=== PATIENT | male | born 1995 | race Caucasian/White ===

== ENCOUNTER 2018-04-12 19:57 | Emergency (ER) | payer SELFPAY ==
[2018-04-12] MEDS ORDERED: Sodium Chloride 0.9% 1,000 ML IV ONE ×3 (20:14→22:18)
--- NOTE | 2018-04-12 20:25 | C.PDOC ---
History Of Present Illness 23 year old male presents to the ED for evaluation of runny nose and sore throat which began yesterday. Patient reports experiencing nausea and several episodes of vomiting and diarrhea at approx 0300 today. He states he vomits after he tries to eat food. Patient also reports fever and chills. He denies unusual food intake, sick contacts, chest pain, shortness of breath, dysuria/hematuria, flank pain. He has no PMHx. Time Seen by Provider: 04/12/18 20:11 Chief Complaint (Nursing): Abdominal Pain History Per: Patient History/Exam Limitations: no limitations Onset/Duration Of Symptoms: Hrs Current Symptoms Are (Timing): Still Present Severity: Moderate Associated Symptoms: Fever, Chills, Nausea, Vomiting, Diarrhea. denies: Urinary Symptoms Additional History Per: Patient Past Medical History Reviewed: Historical Data, Nursing Documentation, Vital Signs Vital Signs: Last Vital Signs Temp 101.9 F H 04/12/18 20:05 Pulse 122 H 04/12/18 20:05 Resp 24 04/12/18 20:05 BP 129/77 04/12/18 20:05 Pulse Ox 99 04/12/18 20:05 - Medical History PMH: No Chronic Diseases Surgical History: No Surg Hx Family History: States: No Known Family Hx - Social History Hx Tobacco Use: Yes (SMOKES HOOKAH) Hx Alcohol Use: No Hx Substance Use: Yes Review Of Systems Constitutional: Positive for: Fever, Chills ENT: Positive for: Nose Congestion, Throat Pain Cardiovascular: Negative for: Chest Pain, Palpitations Respiratory: Negative for: Cough, Shortness of Breath Gastrointestinal: Positive for: Nausea, Vomiting, Diarrhea. Negative for: Abdominal Pain Genitourinary: Negative for: Dysuria, Hematuria Musculoskeletal: Negative for: Other (flank pain ) Skin: Negative for: Rash Physical Exam - Physical Exam Appears: Well, Non-toxic, Other (uncomfortable appearing ) Skin: Normal Color, Warm, Dry, Other (warm to touch ) Eye(s): bilateral: Normal Inspection Ear(s): Bilateral: Normal Nose: Normal, No Discharge Oral Mucosa: Moist Throat: Normal, No Erythema, No Exudate Neck: Supple, Other (no meningismus) Chest: Symmetrical, No Deformity, No Tenderness Cardiovascular: Rhythm Regular, No Murmur, Other (tachycardic ) Respiratory: Normal Breath Sounds, No Rales, No Rhonchi, No Wheezing Gastrointestinal/Abdominal: Normal Exam, Bowel Sounds, Soft, No Tenderness Back: No CVA Tenderness Extremity: Normal ROM Neurological/Psych: Oriented x3 ED Course And Treatment - Laboratory Results Result Diagrams: 04/12/18 20:29 04/12/18 20:29 O2 Sat by Pulse Oximetry: 99 (on RA) Pulse Ox Interpretation: Normal Progress Note: Bloodwork, UA, CXR, influenza swab ordered and reviewed. Patient given PO tylenol, IV NS bolus. Reevaluation Time: 23:30 Reassessment Condition: Improved (On reassessment, patient is resting comfortably and states he feels much better. On exam, abdomen is soft and nonte nder. He is tolerating PO, and is comfortable being discharged home. Rxs for Bentyl, Zofran and naprosyn given. He was instructed to follow up with PMD/clinic in 1-2 days, and he understands he should return to ED if symptoms worsen.) Disposition Counseled Patient/Family Regarding: Studies Performed, Diagnosis, Need For Followup, Rx Given - Disposition Referrals: [facility] [Outside] Disposition: HOME/ ROUTINE Disposition Time: 23:30 Condition: STABLE Additional Instructions: FOLLOW UP WITH YOUR DOCTOR/CLINIC IN 1-2 DAYS USE MEDICATIONS DIRECTED DRINK PLENTY OF FLUIDS RETURN TO ER IF SYMPTOMS WORSEN Prescriptions: Dicyclomine [Bentyl] 20 mg PO Q6 PRN #12 tab PRN Reason: ABDOMINAL CRAMPING Naproxen 375 mg PO BID PRN #20 tablet PRN Reason: pain Ondansetron [Zofran Odt] 4 mg PO Q8 PRN #12 odt PRN Reason: Nausea/Vomiting Instructions: Viral Gastroenteritis, Adult (DC) Forms: [employer] (I[place]ic), Work Excuse Print Language: SYRIAC - Clinical Impression Clinical Impression: Gastroenteritis - Scribe Statement The provider has reviewed the documentation as recorded by the Scribe (Kim Izquierdo) Provider Attestation: All medical record entries made by the Scribe were at my direction and personally dictated by me. I have reviewed the chart and agree that the record accurately reflects my personal performance of the history, physical exam, medical decision making, and the department course for this patient. I have also personally directed, reviewed, and agree with the discharge instructions and disposition.
[2018-04-12 20:32] LABS: BASO # 0.1 K/uL (0.0-0.2); BASO % 0.6 % (0.0-2.0); HEMOGLOBIN 13.9 g/dL (12.0-18.0); LYMPH # 0.4 K/uL (1.0-4.3); LYMPH % 4.4 % (20.0-40.0); MEAN CELL VOLUME 79.9 fL (80.0-94.0); MEAN CORPUSCULAR HEMOGLOBIN 27.3 pg (27.0-31.0); MEAN CORPUSCULAR HGB CONC 34.1 g/dL (33.0-37.0); MEAN PLATELET VOLUME 8.1 fL (7.2-11.7); MONO # 0.5 K/uL (0.0-0.8); MONO % 6.1 % (0.0-10.0); NEUT # 7.9 K/uL (1.8-7.0); NEUT % 88.9 % (50.0-75.0); PLATELET COUNT 184 K/uL (130-400); RED CELL DISTRIBUTION WIDTH 13.2 % (11.5-14.5); WHITE BLOOD COUNT 8.9 K/uL (4.8-10.8)
[2018-04-12 20:43] LABS: ALB/GLOB RATIO 1.2 (1.0-2.1); ALBUMIN 4.3 g/dL (3.5-5.0); ALT/SGPT 43 U/L (21-72); AST/SGOT 30 U/L (17-59); BLOOD UREA NITROGEN 13 mg/dL (9-20); CALCIUM 9.3 mg/dl (8.6-10.4); GFR NON-AFRICAN AMERICAN > 60; LIPASE 38 U/L (23-300)
[2018-04-12 20:55] LABS: BANDS 2 % (0-2); LYMPHOCYTE 6 % (20-40); MONOCYTE 6 % (0-10); NEUTROPHIL 86 % (50-75); PLATELET ESTIMATE NORMAL (NORMAL); TOTAL CELLS COUNTED 100
[2018-04-12 21:41] LABS: SQUAMOUS EPITHIAL 1 /hpf (0-5); URINE BILIRUBIN NEGATIVE (NEGATIVE); URINE BLOOD NEGATIVE (NEGATIVE); URINE CALCIUM OXALATE CRYSTALS OCC /hpf (<OCC); URINE CLARITY Hazy (Clear); URINE COLOR Yellow (YELLOW); URINE GLUCOSE (UA) NORMAL (Normal); URINE LEUKOCYTE ESTERASE NEG Leu/uL (Negative); URINE PROTEIN NEGATIVE (NEGATIVE)
[2018-04-12 23:02] VITALS: PULSE 101; RESP 20; TEMP 99.5
[2018-04-12 23:23] VITALS: BP 122/84; O2SAT 99
--- NOTE | 2018-04-13 08:23 | RAD ---
Date of service: 04/12/2018 PROCEDURE: CHEST RADIOGRAPH, 1 VIEW HISTORY: Cough and fever COMPARISON: 08/10/2014. FINDINGS: LUNGS: The lungs are well inflated and clear. PLEURA: No pneumothorax or pleural effusion. CARDIOVASCULAR: The heart is normal in size. No aortic atherosclerotic calcifications present. OSSEOUS STRUCTURES: Within normal limits for the patient's age. VISUALIZED UPPER ABDOMEN: Normal. OTHER FINDINGS: None. IMPRESSION: No active pulmonary disease.
== END 2018-04-12 23:43 | disposition home or self-care (01) ==
LOC: C.ER 19:57
DX: K52.9 Noninfective gastroenteritis and colitis, unspecified (principal)
CPT/HCPCS: 71045; 80053; 81001; 83690; 85025; 87086; 87804; 96361; 96374; 99285; J1885; J7030